=== PATIENT | female | born 1980 | race Caucasian/White ===

== ENCOUNTER 2016-06-27 19:15 | Inpatient (IN) ==
[~2016-06-27 19:15] MED LIST: 0.9 % Sodium Chloride 1,000 ML IVC SCH; Famotidine 20 MG/2 ML VIAL IVP PRN; Naloxone 0.4 MG/ML INJ IVP PRN; Ondansetron 4 MG/2 ML VIAL IVP PRN
--- NOTE | 2016-06-27 19:15 | OB/GYN History & Physical ---
Date of Encounter: 06/27/16 Time of Encounter: 19:15 Assessment and Plan (1) and not yet delivered in third trimester Current visit: Yes Status: Acute (2) 39 weeks gestation of Current visit: Yes Status: Acute (3) Active labor at term Current visit: Yes Status: Acute admit and anticipate History of Present Illness HPI: Ms. Calvillo is a 36 year old female 3 para 2 at 39-0/7 weeks by a 9-1/7 week ultrasound who presented to labor and delivery in active labor. Patient states she started lea approximately 1700 this evening initially started out light but on the way to the hospital became very intense and every 2 minutes. She denies any leaking of fluid no vaginal bleeding. Patient was a scheduled induction tomorrow. She is GBS negative Rh+. Past Med Surg Social Fam HX - Past Medical History Source: patient, old records reviewed (Mitral valve prolapse, gestational diabetes A2) Psychiatric history: no psych history - Past Surgical History Surgical History: no surgical history - Social History Smoking Status: Current every day smoker Smokeless Tobacco Status: No Alcohol use: none Drug use: none Occupational status: employed Current living situation: Home - Independent Activity Level: Independent ambulation Recent Out of Country Travel Within the Last 8 Weeks: No Exposure or Possible Exposure to Illness During Travel: No - Additional Family History Additional family history: Family history noncontributory Obstetrical History - Pregnancies : 3 Para: 2 Term: 0 : 0 Ab's: 0 Livin Review of System OB All systems PM: reviewed and no additional remarkable complaints except as stated Exam - Constitutional Constitutional: well developed, well nourished, average body habitus, severe distress - HEENT HEENT: PERRL - Neck Neck exam: full ROM - Lungs Respiratory exam: CTAB - Cardiovascular Cardiovascular exam: RRR - Abdomen Abdomen: Present: gravid - Cervix Dilation: 5 Effacement: 90 Station: +1 (buldging membranes) - Comments Comments: heart tones 140's reactive contractions every 2 min Results All other labs normal.
[2016-06-27] MEDS ORDERED: Ringers Solution, Lactated 500 ML IVC ONE (19:24)
[2016-06-27] MEDS ORDERED: *HR* Ropivacaine/PF 0.2% 10 ML AMPUL EP ONE (19:24)
[2016-06-27] MEDS ORDERED: *HR* FentaNYL (PF) 100 MCG/2 ML VIAL EP ONE (19:24)
[2016-06-27] MEDS ORDERED: EPHEDrine 50 MG/ML VIAL IVP PRN (19:24)
[2016-06-27 19:26] LABS: Basophils % 0.4 %; Eosinophils % 0.3 %; Hematocrit 39.7 % (35.3-44.9); Hemoglobin 12.8 g/dL (11.5-15.4); Immature Granulocytes % 0.6 % (0-4); Immature Platelets 2.3 % (1.1-6.1); Lymphocytes # 2.2 K/mcL (0.6-4.6); Lymphocytes % 21.3 %; Mean Corpuscular HGB Conc 32.2 g/dL (31.6-35.5); Mean Corpuscular Hemoglobin 26.7 pg (28.0-33.3); Mean Corpuscular Volume 82.7 fL (83.0-100.0); Mean Platelet Volume 9.1 fL (9.4-12.4); Monocytes # 0.8 K/mcL (0.0-1.3); Monocytes % 7.6 %; Neutrophils # 7.3 K/mcL (1.6-8.9); Platelet Count 285 K/mcL (140-400); Red Cell Distribution Width 15.3 % (11.5-14.5); Segmented Neutrophils % 69.8 %
[2016-06-27] MEDS ORDERED: *HR* FentaNYL (PF) 100 MCG/2 ML VIAL ONE (19:26)
[2016-06-27] MEDS ORDERED: ROPIVACAINE HCL/PF 0.5% 30 ML VIAL ONE (19:26)
[2016-06-27] MEDS ORDERED: Epidural Premix (fent/bupiv) 110 ML EP ONE (19:26)
[2016-06-27] MEDS ORDERED: Epidural Premix (fent/bupiv) 110 ML EP SCH (19:30)
--- NOTE | 2016-06-27 19:36 | Anesthesia Evaluation PreOp ---
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: Denies Any Significant HX Other Medical History: Denies Any Significant HX Anesthesia History: No Prior Anesthetic Complications, Past Anesthesia : Yes Alcohol Use: none Drug use: none Medications and Allergies Ferrous Sulfate [Iron] 325 mg PO DAILY 06/27/16 [History] Glyburide/Metformin HCl [Glyburid-Metformin 1.25-250 mg] 1 tab PO DAILY [History] Tablet 1 tab PO DAILY 06/27/16 [History] Allergies No Known Allergies Allergy (Verified 06/27/16 19:28) - Meds/Allergy Pre-op Review Medications Reviewed: Yes Allergies Reviewed: Yes Beta Blockers on Current Med List: No Anesthesia Results - Labs 06/27/16 19:15 06/27/16 19:15 Anesthesia Exam Blood glucose: 84 Height: 1.65m Weight: 66.5kg NPO (# of Hours): >4hr Pain Scale: 9 Pain Scale Used: Numeric (1 - 10) - HEENT Pupil (Motor): Pupils equal Mallampati: I Teeth: Normal Oral Opening: Greater than 3 - PROGRAMMING EQUIPMENT OPERATOR LOC: Oriented PROGRAMMING EQUIPMENT OPERATOR Motor: Normal RUE, Normal LUE, Normal RLE, Normal LLE, Normal Face PROGRAMMING EQUIPMENT OPERATOR Sensory: Normal: RUE, LUE, RLE, LLE, Face - Cardiac Rhythm: Regular Murmur: None JVD: No Carotid Bruit: No - Pulmonary Breath Sounds: bilateral Clear Respiratory Effort: Symmetrical Anesthesia Assess/Plan ASA Score: 2 Modified [place] Scale for Level of Consciousness: Cooperative, oriented, and tranquil Anesthetic Plan: Regional Autologous Blood: Yes Monitoring Plan: Standard Monitors Recovery Plan: Other
--- NOTE | 2016-06-27 19:58 | Anesthesia Procedures ---
Date of Encounter: 06/27/16 Time of Encounter: 19:35 Procedures: Anesthesia - Epidural/Spinal Patient ID/Chart reviewed: Yes Patient examined: Yes OB Eval: Gestational age: 39 OB Eval: : 3 OB Eval: Hx Para: 2 OB Eval: Dilated at (cm): 4 OB Eval: Contractions: Non-stressed pattern Consent Obtained: Yes Supplemental Oxygen: None/Room Air Site Prep: Aseptic Technique, Sterile prep and drape, 0.5% Chlorhexidine/Alcohol Patient position: upright Local Anesthetic: Lidocaine 1% Amount of Local Anesthetic used: 2.5 Touhy Needle Gauge: 18 Touhy Needle Depth (cm): 6 Catheter Depth at Skin (cm): 12 Test Dose (1.5% Lido + Epi): Volume given (mls): 5 Test Dose Result: Negative Loading Dose: Fentanyl (mcg): 100 Loading Dose: Other: Ropivacaine 0.5% 10mL Loading Dose Administered: Thru Catheter Infusion Med: 0.125% Bupivacaine w/ 2 mcg/ml Fentanyl Infusion Rate (mls/hr): 15 (Bolus 4mL q15min; Max 3/hr) Catheter Secured in Place: Tegaderm Interspace Used: L2-L3 Loss of Resistance (KANDI): Yes Blood: No CSF: No Paresthesia: No Procedure: Patient tolerated well. Increased comfort within 10min of bolus. Vitals + FHT's: FHR and VSS throughout procedure. See nursing documentation.
--- NOTE | 2016-06-27 20:01 | OB Labor Progress Note ---
Date of Encounter: 06/27/16 Time of Encounter: 20:00 Labor Progress Note - Subjective Subjective: patient more comfortable after epidural - Cervix Cervix: 8-9/90/+1 - Heart Tones Heart Tones: FHT's 140's reactive - [place]: contractions every 2 min - Plan Plan: anticipate
[2016-06-27] MEDS ORDERED: Oxytocin 20 units/ LR 1000 mL 20 UNIT/1,000 ML BAG IVC ONE (20:48)
--- NOTE | 2016-06-27 21:34 | OB/GYN Procedure Note ---
Delivery - Delivery Date: 06/27/16 Provider: Dawit Bender Intrapartum events: precipitous labor- <3hr Delivery induction: none Delivery augmentation: rupture of membranes Delivery monitor: external FHT, external uterine Anesthesia: epidural Estimated Blood Loss: 50 - Infant (s) Infant A Infant Delivery Date: 06/27/16 Delivery Time: 21:07 Presentation: vertex Position: JADEN Route of delivery: Gender: Female Viability: Viable Pounds: 7 Ounces: 11 Weight Gram: 3.56 kg at 1 minute: 8 at 5 mins: 9 Shoulder Dystocia: not encountered Specimens collected: cord blood Placenta: spontaneous Cord: 3 umbilical vessels - Repair Episiotomy: none Laceration Description: None - Complications Delivery complications: none Delivery comments: Patient is a 36-year-old 3 para 2 at 39-0/7 weeks who presents to labor and delivery in active labor. She states she started lea approximately 1700 and the contractions came very abrupt and with very uncomfortable. She arrived around 1800 and patient was 4-5 cm. She received an epidural and within an hour she was 8-9 cm bulging membranes. She was artificially ruptured and fluid was bloody but I suspect it was more related to cervical change. heart tones remained stable no decelerations seen. Patient was allowed to labor down and then patient pushed 1 time delivering a viable female in right occiput anterior presentation at 2107. There was no nuchal cord and meconium the was bulb suctioned on the abdomen, Apgars were 8 at 1 minute , 9 at 5 minutes, infant weight was 7 lbs. 11 oz. It was noted during the delivery of the baby fluid followed was grossly bloody. Placenta was then delivered spontaneously 3 vessel cord she was noted to have large clot on the membranes of the placenta and on the edge suggestive of an abruption. Associate Vice President Dr. Bender anesthesia epidural estimated blood loss 50 mL. Perineum cervix and vagina was visualized intact. Patient will be observed 2 hours before being taken floor. - Disposition Mom disposition: stable in LDR [place] disposition: stable in LDR
[2016-06-27] MEDS ORDERED: Measles/Mumps/Rubella Vacc 0.5 ML VIAL SQ PRN (22:24)
[2016-06-27] MEDS ORDERED: Acetaminophen 325 MG TABLET PO PRN (22:24)
[2016-06-27] MEDS ORDERED: Oxytocin 20 units/ LR 1000 mL 20 UNIT/1,000 ML BAG IVC SCH (22:24)
[2016-06-28] MEDS: Ibuprofen 600 MG TABLET PO PRN ×2 (06:20→19:54)
--- NOTE | 2016-06-28 08:30 | OB/GYN Progress Note ---
Date of Encounter: 06/28/16 Time of Encounter: 08:28 - Assessment and Plan (1) Vaginal delivery Current Visit: Yes Status: Acute Continue routine care Anticipate discharge home tonight or tomorrow Subjective - Subjective Principal diagnosis: Spontaneous Vaginal Delivery Interval history: Patient doing well s/p vaginal delivery day 1. Denies cramping and back pain States burning upon urination Passing flatus Lochia moderate with no clots going well Patient has not decided when to go home, considering after 24 hours tonight or sleeping here and discharging home in the morning Patient reports: appetite normal, voiding normally, pain well controlled, ambulating normally [place]: doing well Objective - Latest Vital Signs Latest vital signs: Vital Signs Temp Pulse Resp BP Pulse Ox 06/28/16 08:02 98.3 F 86 16 112/71 97 06/28/16 01:50 98.4 F 91 16 118/78 100 06/28/16 01:00 97.6 F 86 14 116/78 100 06/27/16 23:50 97.6 F 80 14 115/74 100 Intake and Output 06/27/16 06/28/16 06/28/16 23:59 07:59 15:59 Intake Total 200 / 200 Output Total 150 / 150 700 / 700 Balance -150 / -150 -500 / -500 Intake: Oral 200 / 200 Output: Urine 700 / 700 Estimated Blood Loss 50 / 50 Catheter 100 / 100 Other: Weight 63.5 kg Blood Glucose* 84 - Exam Lungs: bilateral: normal Chest: Normal S1, Normal S2 Extremities: Present: normal Abdomen: Present: normal appearance, soft Uterus: Present: normal, firm Uterus Position: 2 Fingers Below Umbilicus, Midline Comments: Small hemostatic periurethral laceration upon visual exam - Labs Labs: Laboratory Results - last 24 hr 06/27/16 06/27/16 06/27/16 19:15 19:15 19:32 WBC 10.5 RBC 4.80 Hgb 12.8 Hct 39.7 MCV 82.7 L MCH 26.7 L MCHC 32.2 RDW 15.3 H Plt Count 285 MPV 9.1 L Immature Gran % 0.6 Seg Neutrophils % 69.8 Lymphocytes % 21.3 Monocytes % 7.6 Eosinophils % 0.3 Basophils % 0.4 Neutrophils # 7.3 Lymphocytes # 2.2 Monocytes # 0.8 Eosinophils # 0.0 Basophils # 0.0 Immature Plt Fraction 2.3 Glucose 76 POC Glucose 84
[2016-06-28] MEDS ORDERED: NON-FORMULARY MEDICATION 1 EACH EACH (Prenatal Tablet 1 TAB) PO SCH (09:00)
[2016-06-28] MEDS ORDERED: Prenatal Vit/FA 1 EACH TABLET PO SCH (09:00)
--- NOTE | 2016-06-28 19:56 | Discharge Summary ---
Date of Encounter: 06/28/16 Time of Encounter: 19:53 - Discharge Diagnosis (1) Vaginal delivery Priority: Primary Status: Acute Comments: Patient continues doing well s/p vaginal delivery day 1. Denies cramping and back pain States burning upon urination Passing flatus Lochia moderate with no clots going well Patient requesting 24 hour discharge - Discharge Medications Prescriptions: Ibuprofen [Motrin] 600 mg PO Q6HR PRN #60 tablet PRN Reason: Cramping Home Medications: Ferrous Sulfate [Iron] 325 mg PO DAILY 06/27/16 [History] Tablet 1 tab PO DAILY 06/27/16 [History] Docusate [Colace] 100 mg PO BID capsule 06/28/16 [Rx] Ibuprofen [Motrin] 600 mg PO Q6HR PRN #60 tablet 06/28/16 [Rx] Allergies/Adverse Reactions: Allergies No Known Allergies Allergy (Verified 06/27/16 19:28) Data Procedures and tests throughout hospitalization: Laboratory Tests 06/27/16 06/27/16 06/27/16 19:15 19:15 19:32 WBC 10.5 RBC 4.80 Hgb 12.8 Hct 39.7 MCV 82.7 L MCH 26.7 L MCHC 32.2 RDW 15.3 H Plt Count 285 MPV 9.1 L Immature Gran % 0.6 Seg Neutrophils % 69.8 Lymphocytes % 21.3 Monocytes % 7.6 Eosinophils % 0.3 Basophils % 0.4 Neutrophils # 7.3 Lymphocytes # 2.2 Monocytes # 0.8 Eosinophils # 0.0 Basophils # 0.0 Immature Plt Fraction 2.3 Glucose 76 POC Glucose 84 Date of admission: 06/27/16 19:15 Primary care physician: Ja Flores Consults: 06/27/16 22:24 Consult to Team Manager [CONS] Routine Comment: Vaginal delivery, consult needed Discharging clinician: Chyna Santiago - Patient Status Disposition: Home, Self-Care Condition: Good Functional capacity at discharge: independent ambulation Overall status at discharge: patient is back to baseline - Discharge Instructions Follow Up With: Ja Flores DO [Primary Care Provider] - Tru Restrepo MD [Partnered Physician] - - Diet and Activity Activity: increase activity as tolerated Diet: regular diet Hospital Course Reason for admission: active labor, IUP at term Delivery: Episiotomy: none Laceration: other (hemostatic periurethral) Other procedures: none complications: none Discharge diagnosis: IUP at term delivered Time Attestation: Total time spent providing and/or coordinating discharge services: Time Spent: Less than 30 minutes Exam - Constitutional Vitals: Temp Pulse Resp BP Pulse Ox 98.7 F 86 16 115/67 98 06/28/16 16:16 06/28/16 16:16 06/28/16 16:16 06/28/16 16:16 06/28/16 16:16 General appearance IM: cooperative, A&O X 3, pleasant - Respiratory Respiratory exam: Present: CTAB - Cardiovascular Cardiovascular exam IM: Present: RRR, +S1, +S2 - GI/Abdominal GI/Abdominal exam IM: normal bowel sounds, soft - Rectal Rectal exam: deferred - Uterine Tone: Firm Uterus Position: 2 Fingers Below Umbilicus, Midline - Extremities Exam Extremities exam IM: Present: normal capillary refill, normal inspection, radial pulses palpable and symetrical - Neurological Exam Neurological exam: alert, oriented X3
[2016-06-28] MEDS ORDERED: Benzocaine/Menthol 56 GM AEROSOL SPRAY TP PRN ×2 (20:07→20:31)
[2016-06-28 20:08] VITALS: BP 116/75
== END 2016-06-28 21:45 | disposition home or self-care (01) | DRG 774 ==
LOC: 1NENULAB → 1NENUOBS 23:14
PROVIDERS: ADMIT Obstetrics & Gynecology; ATTEND Obstetrics & Gynecology